=== PATIENT | male | born 1985 | race Hispanic/Latino ===

== ENCOUNTER 2020-11-29 09:31 | Inpatient (IN) | payer MEDICARE, OTHER ==
[~2020-11-29] VITALS: Ht 172.7 cm; Wt 118.2 kg
[2020-11-29] MEDS ORDERED: SODIUM CHLORIDE 0.9% 1000ML 1,000 ML IV STA (10:10)
[2020-11-29] MEDS ORDERED: CEFEPIME 2 GM in SODIUM CHLORIDE 0.9% 100 ML IV ONE (10:15)
[2020-11-29 10:25] LABS: BASOPHILS % 0.3 % (0.0-1.0); EOSINOPHILS % 0.1 % (0.0-6.0); HEMATOCRIT 40.4 % (38.2-49.6); HEMOGLOBIN 13.3 g/dL (14.0-18.0); LYMPHOCYTES # (AUTO) 2.1 (1.0-3.2); LYMPHOCYTES % 28.3 % (18.0-39.1); MEAN CORPUSCULAR HEMOGLOBIN 27.8 pg (28-32); MEAN CORPUSCULAR HGB CONC 32.9 g/dL (31-35); MEAN CORPUSCULAR VOLUME 84.3 fL (81-99); MONOCYTES # (AUTO) 0.8 (0.2-0.8); MONOCYTES % 11.2 % (4.4-11.3); NEUTROPHILS # (AUTO) 4.4 (2.1-6.9); NEUTROPHILS % 59.7 % (38.7-80.0); PLATELET COUNT 245 x10e3/uL (140-360); RED BLOOD COUNT 4.79 x10e6/uL (4.3-5.7); RED CELL DISTRIBUTION WIDTH 12.8 % (11.7-14.4)
[2020-11-29 10:44] LABS: ALBUMIN 3.7 g/dL (3.5-5.0); ALBUMIN/GLOBULIN RATIO 1.2 (0.8-2.0); ANION GAP 17.4 mmol/L (8-16); CALCIUM 8.3 mg/dL (8.4-10.2); CREATININE, SERUM 4.39 mg/dL (0.72-1.25); MAGNESIUM 1.8 MG/DL (1.3-2.1); POTASSIUM 4.4 mmol/L (3.5-5.1)
[2020-11-29 10:51] LABS: CREATINE KINASE MB 0.4 ng/mL (0-5.0)
[2020-11-29 11:04] LABS: B-TYPE NATRIURETIC PEPTIDE2 < 10.0 pg/mL (0-100)
[2020-11-29] MEDS ORDERED: DEXAMETHASONE SOD PHOS 10 MG/1 ML VIAL IV SCH (12:45)
[2020-11-29 13:57] LABS: CLARITY,URINE CLEAR (CLEAR); COLOR,URINE YELLOW (YELLOW); KETONES,URINE NEGATIVE (NEGATIVE); LEUKOCYTE ESTERASE ,URINE NEGATIVE (NEGATIVE); NITRITE,URINE NEGATIVE (NEGATIVE); PROTEIN,URINE DIPSTICK 2+ (NEGATIVE); URINE UROBILINOGEN 0.2 mg/dL (0.2 - 1)
[2020-11-29 14:25] LABS: BACTERIA,URINE RARE /HPF; EPITHELIAL CELLS,URINE FEW /LPF; RBC,URINE 0-5 /HPF (0-5); WBC,URINE (MAN) 0-5 /HPF (0-5)
[2020-11-29] MEDS ORDERED: DEXTROSE 50% SYRINGE 50 ML IV PRN (14:45)
[2020-11-29] MEDS ORDERED: LIDOCAINE 4% PATCH TP PRN (14:45)
[2020-11-29] MEDS ORDERED: ONDANSETRON HCL INJ 2MG/ML 2ML 2 MG/ML VIAL IV PRN (14:45)
[2020-11-29] MEDS ORDERED: BENZONATATE 100 MG CAP PO PRN (14:45)
[2020-11-29] MEDS ORDERED: HYDRALAZINE HCL 20 MG/ML VIAL IV PRN (14:45)
[2020-11-29] MEDS ORDERED: POTASSIUM CHLORIDE 20 MEQ TAB CR PO PRN (14:45)
[2020-11-29] MEDS ORDERED: DIPHENHYDRAMINE HCL 25 MG CAP PO PRN (14:45)
[2020-11-29] MEDS ORDERED: DOCUSATE SODIUM 100 MG CAP PO PRN (14:45)
[2020-11-29 19:00] VITALS: BP 135/83
[2020-11-29 20:00] VITALS: BP 135/83
[2020-11-29] MEDS ORDERED: AMLODIPINE BESYL5 MG PO (20:19)
[2020-11-29] MEDS: SODIUM CHLORIDE 0.9% 1000ML 1,000 ML IV SCH (20:19)
[2020-11-29] MEDS ORDERED: [UNRECOGNIZED DRUG - OTHER] PO (20:19)
[2020-11-29] MEDS ORDERED: ACTHAR H.P80 UNIT/1 SQ (20:19)
[2020-11-29] MEDS: ASCORBIC ACID 500 MG TAB PO SCH (20:19)
[2020-11-29] MEDS ORDERED: LOSARTAN POTAS100 MG PO (20:19)
[2020-11-29] MEDS ORDERED: CARVEDILOL6.25 MG PO (20:19)
[2020-11-29 21:01] VITALS: BP 135/83
[2020-11-29] MEDS ORDERED: BENLYSTA120 MG IV (22:32)
[2020-11-29] MEDS ORDERED: FUROSEMIDE80 MG PO (22:35)
[2020-11-30] VITALS (7 sets, daily range): BP systolic 122–141; BP diastolic 68–87
[2020-11-30] MEDS: SODIUM CHLORIDE 0.9% 1000ML 1,000 ML IV SCH ×2 (05:15→14:00)
[2020-11-30 05:43] LABS: HEMATOCRIT 38.1 % (38.2-49.6); HEMOGLOBIN 12.5 g/dL (14.0-18.0); LYMPHOCYTES # (AUTO) 1.2 (1.0-3.2); LYMPHOCYTES % 27.1 % (18.0-39.1); MEAN CORPUSCULAR HEMOGLOBIN 27.8 pg (28-32); MEAN CORPUSCULAR HGB CONC 32.8 g/dL (31-35); MEAN CORPUSCULAR VOLUME 84.9 fL (81-99); MONOCYTES # (AUTO) 0.2 (0.2-0.8); NEUTROPHILS # (AUTO) 2.9 (2.1-6.9); NEUTROPHILS % 67.4 % (38.7-80.0); PLATELET COUNT 240 x10e3/uL (140-360); RED BLOOD COUNT 4.49 x10e6/uL (4.3-5.7); RED CELL DISTRIBUTION WIDTH 12.7 % (11.7-14.4)
[2020-11-30 06:17] LABS: ALBUMIN 3.4 g/dL (3.5-5.0); ALBUMIN/GLOBULIN RATIO 1.1 (0.8-2.0); ANION GAP 17.9 mmol/L (8-16); CREATININE, SERUM 3.63 mg/dL (0.72-1.25); POTASSIUM 4.9 mmol/L (3.5-5.1)
[2020-11-30 06:56] LABS: CREATINE KINASE 129 IU/L (30-200)
[2020-11-30 07:10] LABS: PHOSPHORUS 2.4 MG/DL (2.3-4.7)
[2020-11-30 07:30] LABS: THYROID STIMULATING HORMONE 0.279 uIU/mL (0.350-4.940)
[2020-11-30] MEDS: ASCORBIC ACID 500 MG TAB PO SCH ×2 (08:52→17:05)
[2020-11-30] MEDS: ZINC SULFATE 220 MG CAP PO SCH (08:52)
[2020-11-30] MEDS: PANTOPRAZOLE SOD 40 MG TABEC PO SCH (08:52)
[2020-11-30] MEDS ORDERED: SODIUM CHLORIDE 0.9% 50ML 50 ML ONE (15:11)
[2020-11-30] MEDS: CEFTRIAXONE 1 GM in SODIUM CHLORIDE 0.9% 50ML 50 ML IV SCH (15:20)
[2020-11-30 16:23] LABS: CREATINE KINASE MB 0.9 ng/mL (0-5.0)
[2020-11-30] MEDS ORDERED: PLAQUENIL200 MG PO (17:01)
[2020-11-30] MEDS: CARVEDILOL 12.5 MG TAB PO SCH (17:04)
[2020-11-30] MEDS: HYDROXYCHLOROQUINE SULFATE 200 MG TAB PO SCH (18:59)
[2020-11-30] MEDS: HEPARIN SOD (PORCINE) 5,000 UNIT/ML VIAL SC SCH (22:54)
[2020-12-01] VITALS (7 sets, daily range): BP systolic 125–151; BP diastolic 66–92
[2020-12-01] MEDS: SODIUM CHLORIDE 0.9% 1000ML 1,000 ML IV SCH ×2 (05:23→12:42)
[2020-12-01] MEDS: ACETAMINOPHEN 325 MG TAB PO PRN ×3 (05:57→20:23)
[2020-12-01] MEDS: PANTOPRAZOLE SOD 40 MG TABEC PO SCH (08:41)
[2020-12-01] MEDS: CARVEDILOL 12.5 MG TAB PO SCH ×2 (08:42→16:24)
[2020-12-01] MEDS: [UNRECOGNIZED DRUG - OTHER] PO SCH ×2 (08:42→17:00)
[2020-12-01] MEDS: HYDROXYCHLOROQUINE SULFATE 200 MG TAB PO SCH (08:42)
[2020-12-01] MEDS: ZINC SULFATE 220 MG CAP PO SCH (08:42)
[2020-12-01] MEDS: ASCORBIC ACID 500 MG TAB PO SCH ×2 (08:42→16:25)
[2020-12-01] MEDS: AMLODIPINE BESYLATE 5 MG TAB PO SCH (08:42)
[2020-12-01] MEDS: HEPARIN SOD (PORCINE) 5,000 UNIT/ML VIAL SC SCH ×2 (08:43→21:35)
[2020-12-01] MEDS: [UNRECOGNIZED DRUG - OTHER] SC SCH (10:00)
[2020-12-01] MEDS: CEFTRIAXONE 1 GM in SODIUM CHLORIDE 0.9% 50ML 50 ML IV SCH (14:54)
[2020-12-01 16:09] LABS: ANION GAP 13.5 mmol/L (8-16); CALCIUM 7.5 mg/dL (8.4-10.2); CREATININE, SERUM 3.28 mg/dL (0.72-1.25); POTASSIUM 4.5 mmol/L (3.5-5.1)
[2020-12-01] MEDS: LACTATED RINGER'S 1,000 ML INJ SCH (18:56)
[2020-12-02] VITALS (8 sets, daily range): BP systolic 106–149; BP diastolic 65–91
[2020-12-02] MEDS: LACTATED RINGER'S 1,000 ML INJ SCH ×2 (04:54→16:40)
[2020-12-02] MEDS: AMLODIPINE BESYLATE 5 MG TAB PO SCH (08:26)
[2020-12-02] MEDS: ZINC SULFATE 220 MG CAP PO SCH (08:26)
[2020-12-02] MEDS: HYDROXYCHLOROQUINE SULFATE 200 MG TAB PO SCH (08:26)
[2020-12-02] MEDS: ASCORBIC ACID 500 MG TAB PO SCH ×2 (08:26→17:00)
[2020-12-02] MEDS: PANTOPRAZOLE SOD 40 MG TABEC PO SCH (08:26)
[2020-12-02] MEDS: CARVEDILOL 12.5 MG TAB PO SCH ×2 (08:26→17:00)
[2020-12-02] MEDS: ACETAMINOPHEN 325 MG TAB PO PRN ×2 (08:27→22:34)
[2020-12-02 08:57] LABS: ANION GAP 14.7 mmol/L (8-16); CREATININE, SERUM 3.33 mg/dL (0.72-1.25); POTASSIUM 4.7 mmol/L (3.5-5.1)
[2020-12-02] MEDS: HEPARIN SOD (PORCINE) 5,000 UNIT/ML VIAL SC SCH ×2 (09:00→21:15)
[2020-12-02] MEDS: [UNRECOGNIZED DRUG - OTHER] PO SCH ×2 (09:00→17:00)
[2020-12-02] MEDS: CEFTRIAXONE 1 GM in SODIUM CHLORIDE 0.9% 50ML 50 ML IV SCH (15:50)
[2020-12-02] MEDS ORDERED: REMDESIVIR 200MG/NS 100ML 200 MG in SODIUM CHLORIDE 0.9% 100 ML 100 ML IV ONE (16:00)
[2020-12-02] MEDS: DEXAMETHASONE SOD PHOS INJ 4 MG/ML VIAL IV SCH (16:40)
[2020-12-03] VITALS (8 sets, daily range): BP systolic 120–135; BP diastolic 69–89
[2020-12-03 04:47] LABS: BASOPHILS % 0.1 % (0.0-1.0); HEMATOCRIT 37.8 % (38.2-49.6); HEMOGLOBIN 12.5 g/dL (14.0-18.0); LYMPHOCYTES % 14.5 % (18.0-39.1); MEAN CORPUSCULAR HEMOGLOBIN 27.5 pg (28-32); MEAN CORPUSCULAR HGB CONC 33.1 g/dL (31-35); MEAN CORPUSCULAR VOLUME 83.1 fL (81-99); MONOCYTES # (AUTO) 0.3 (0.2-0.8); MONOCYTES % 3.9 % (4.4-11.3); NEUTROPHILS # (AUTO) 5.4 (2.1-6.9); NEUTROPHILS % 81.2 % (38.7-80.0); PLATELET COUNT 211 x10e3/uL (140-360); RED BLOOD COUNT 4.55 x10e6/uL (4.3-5.7); RED CELL DISTRIBUTION WIDTH 12.8 % (11.7-14.4)
[2020-12-03 05:16] LABS: ANION GAP 17.5 mmol/L (8-16); CALCIUM 7.6 mg/dL (8.4-10.2); CREATININE, SERUM 3.47 mg/dL (0.72-1.25); POTASSIUM 4.5 mmol/L (3.5-5.1)
[2020-12-03] MEDS: PANTOPRAZOLE SOD 40 MG TABEC PO SCH (07:30)
[2020-12-03] MEDS: AMLODIPINE BESYLATE 5 MG TAB PO SCH (09:00)
[2020-12-03] MEDS: HYDROXYCHLOROQUINE SULFATE 200 MG TAB PO SCH (09:00)
[2020-12-03] MEDS: [UNRECOGNIZED DRUG - OTHER] PO SCH ×2 (09:00→16:55)
[2020-12-03] MEDS: DEXAMETHASONE SOD PHOS INJ 4 MG/ML VIAL IV SCH (09:00)
[2020-12-03] MEDS: HEPARIN SOD (PORCINE) 5,000 UNIT/ML VIAL SC SCH ×2 (09:00→21:00)
[2020-12-03] MEDS: ZINC SULFATE 220 MG CAP PO SCH (09:00)
[2020-12-03] MEDS: CARVEDILOL 12.5 MG TAB PO SCH ×2 (09:00→16:55)
[2020-12-03] MEDS: ASCORBIC ACID 500 MG TAB PO SCH ×2 (09:00→16:55)
[2020-12-03 10:02] LABS: BAND NEUTROPHILS % (MANUAL) 4 %; LYMPHOCYTES % (MANUAL) 9 % (19-48); MONOCYTES % (MANUAL) 1 % (3.4-9.0); NEUTROPHILS % (MANUAL) 84 % (40-74)
[2020-12-03 10:03] LABS: PLATELET ESTIMATE ADEQUATE; PLATELET MORPHOLOGY COMMENT NORMAL; RBC MORPHOLOGY COMMENT NORMAL
[2020-12-03] MEDS: LACTATED RINGER'S 1,000 ML INJ SCH (11:30)
[2020-12-03] MEDS ORDERED: CHOLESTYRAMINE 4 GM PACKET PO PRN (12:15)
[2020-12-03] MEDS: REMDESIVIR 100MG/NS 100ML 100 MG in SODIUM CHLORIDE 0.9% 100 ML 100 ML IV SCH (14:00)
[2020-12-03] MEDS ORDERED: FUROSEMIDE INJ 10 MG/ML 2 ML VIAL IV ONE (15:30)
[2020-12-03] MEDS: CEFTRIAXONE 1 GM in SODIUM CHLORIDE 0.9% 50ML 50 ML IV SCH (15:38)
[2020-12-03] MEDS ORDERED: ALBUTEROL SULFATE HFA 8GM INHALATION AEROSOL INH PRN (23:30)
[2020-12-04] VITALS (8 sets, daily range): BP systolic 114–122; BP diastolic 71–81
[2020-12-04] MEDS: ACETAMINOPHEN 325 MG TAB PO PRN (04:30)
[2020-12-04 05:03] LABS: BASOPHILS % 0.1 % (0.0-1.0); HEMATOCRIT 38.7 % (38.2-49.6); HEMOGLOBIN 12.7 g/dL (14.0-18.0); LYMPHOCYTES # (AUTO) 0.9 (1.0-3.2); LYMPHOCYTES % 8.8 % (18.0-39.1); MEAN CORPUSCULAR HEMOGLOBIN 27.2 pg (28-32); MEAN CORPUSCULAR HGB CONC 32.8 g/dL (31-35); MEAN CORPUSCULAR VOLUME 82.9 fL (81-99); MONOCYTES # (AUTO) 0.8 (0.2-0.8); MONOCYTES % 7.7 % (4.4-11.3); NEUTROPHILS # (AUTO) 8.3 (2.1-6.9); NEUTROPHILS % 82.9 % (38.7-80.0); PLATELET COUNT 270 x10e3/uL (140-360); RED BLOOD COUNT 4.67 x10e6/uL (4.3-5.7); RED CELL DISTRIBUTION WIDTH 13.2 % (11.7-14.4)
[2020-12-04 05:23] LABS: ANION GAP 17.6 mmol/L (8-16); CALCIUM 8.1 mg/dL (8.4-10.2); CREATININE, SERUM 3.6 mg/dL (0.72-1.25); POTASSIUM 4.6 mmol/L (3.5-5.1)
[2020-12-04] MEDS: PANTOPRAZOLE SOD 40 MG TABEC PO SCH (07:30)
[2020-12-04] MEDS: ZINC SULFATE 220 MG CAP PO SCH (09:00)
[2020-12-04] MEDS: ASCORBIC ACID 500 MG TAB PO SCH ×2 (09:00→16:59)
[2020-12-04] MEDS: HYDROXYCHLOROQUINE SULFATE 200 MG TAB PO SCH (09:00)
[2020-12-04] MEDS: CARVEDILOL 12.5 MG TAB PO SCH ×2 (09:00→16:59)
[2020-12-04] MEDS: AMLODIPINE BESYLATE 5 MG TAB PO SCH (09:00)
[2020-12-04] MEDS: HEPARIN SOD (PORCINE) 5,000 UNIT/ML VIAL SC SCH ×2 (09:00→20:36)
[2020-12-04] MEDS: DEXAMETHASONE SOD PHOS INJ 4 MG/ML VIAL IV SCH (09:00)
[2020-12-04] MEDS: [UNRECOGNIZED DRUG - OTHER] PO SCH (09:00)
[2020-12-04] MEDS: [UNRECOGNIZED DRUG - OTHER] SC SCH (10:00)
[2020-12-04] MEDS ORDERED: FUROSEMIDE INJ 10 MG/ML 4 ML VIAL IV ONE ×2 (10:30→11:00)
[2020-12-04] MEDS: REMDESIVIR 100MG/NS 100ML 100 MG in SODIUM CHLORIDE 0.9% 100 ML 100 ML IV SCH (14:00)
[2020-12-04] MEDS: CEFTRIAXONE 1 GM in SODIUM CHLORIDE 0.9% 50ML 50 ML IV SCH (14:50)
[2020-12-05] VITALS (8 sets, daily range): BP systolic 106–124; BP diastolic 60–78
[2020-12-05] MEDS: LORAZEPAM 0.5 MG TAB PO PRN ×3 (01:03→23:59)
[2020-12-05 06:19] LABS: BASOPHILS % 0.1 % (0.0-1.0); HEMATOCRIT 39.1 % (38.2-49.6); HEMOGLOBIN 12.8 g/dL (14.0-18.0); LYMPHOCYTES # (AUTO) 0.9 (1.0-3.2); LYMPHOCYTES % 7.6 % (18.0-39.1); MEAN CORPUSCULAR HEMOGLOBIN 27.4 pg (28-32); MEAN CORPUSCULAR HGB CONC 32.7 g/dL (31-35); MEAN CORPUSCULAR VOLUME 83.7 fL (81-99); MONOCYTES # (AUTO) 0.9 (0.2-0.8); MONOCYTES % 8.2 % (4.4-11.3); NEUTROPHILS # (AUTO) 9.3 (2.1-6.9); NEUTROPHILS % 82.7 % (38.7-80.0); PLATELET COUNT 304 x10e3/uL (140-360); RED BLOOD COUNT 4.67 x10e6/uL (4.3-5.7); RED CELL DISTRIBUTION WIDTH 13.5 % (11.7-14.4)
[2020-12-05 06:45] LABS: ALBUMIN 2.9 g/dL (3.5-5.0); ALBUMIN/GLOBULIN RATIO 0.8 (0.8-2.0); ANION GAP 19.6 mmol/L (8-16); CALCIUM 7.7 mg/dL (8.4-10.2); CREATININE, SERUM 4.03 mg/dL (0.72-1.25); POTASSIUM 4.6 mmol/L (3.5-5.1)
[2020-12-05] MEDS: DEXAMETHASONE SOD PHOS INJ 4 MG/ML VIAL IV SCH (08:44)
[2020-12-05] MEDS: PANTOPRAZOLE SOD 40 MG TABEC PO SCH (08:44)
[2020-12-05] MEDS: ASCORBIC ACID 500 MG TAB PO SCH ×2 (08:45→17:00)
[2020-12-05] MEDS: AMLODIPINE BESYLATE 5 MG TAB PO SCH (08:45)
[2020-12-05] MEDS: CARVEDILOL 12.5 MG TAB PO SCH ×2 (08:45→17:00)
[2020-12-05] MEDS: ZINC SULFATE 220 MG CAP PO SCH (08:45)
[2020-12-05] MEDS: HEPARIN SOD (PORCINE) 5,000 UNIT/ML VIAL SC SCH ×2 (10:58→21:44)
[2020-12-05] MEDS: REMDESIVIR 100MG/NS 100ML 100 MG in SODIUM CHLORIDE 0.9% 100 ML 100 ML IV SCH (13:30)
[2020-12-05] MEDS ORDERED: SODIUM BICARBONATE 650 MG TAB PO SCH (14:00)
[2020-12-05] MEDS: CEFTRIAXONE 1 GM in SODIUM CHLORIDE 0.9% 50ML 50 ML IV SCH (15:00)
[2020-12-05] MEDS: SODIUM BICARBONATE 650 MG TAB PO SCH (17:00)
[2020-12-06] VITALS (8 sets, daily range): BP systolic 97–117; BP diastolic 55–70
[2020-12-06 07:11] LABS: BASOPHILS % 0.2 % (0.0-1.0); HEMATOCRIT 38.1 % (38.2-49.6); HEMOGLOBIN 12.3 g/dL (14.0-18.0); MEAN CORPUSCULAR HEMOGLOBIN 27.4 pg (28-32); MEAN CORPUSCULAR HGB CONC 32.3 g/dL (31-35); MEAN CORPUSCULAR VOLUME 84.9 fL (81-99); MONOCYTES # (AUTO) 1.3 (0.2-0.8); NEUTROPHILS # (AUTO) 9.7 (2.1-6.9); NEUTROPHILS % 77.5 % (38.7-80.0); PLATELET COUNT 304 x10e3/uL (140-360); RED BLOOD COUNT 4.49 x10e6/uL (4.3-5.7); RED CELL DISTRIBUTION WIDTH 13.6 % (11.7-14.4)
[2020-12-06 07:40] LABS: ANION GAP 19.7 mmol/L (8-16); CALCIUM 7.5 mg/dL (8.4-10.2); CREATININE, SERUM 4.49 mg/dL (0.72-1.25); POTASSIUM 4.7 mmol/L (3.5-5.1)
[2020-12-06] MEDS: AMLODIPINE BESYLATE 5 MG TAB PO SCH (09:00)
[2020-12-06] MEDS: PANTOPRAZOLE SOD 40 MG TABEC PO SCH (09:04)
[2020-12-06] MEDS: DEXAMETHASONE SOD PHOS INJ 4 MG/ML VIAL IV SCH (09:05)
[2020-12-06] MEDS: CARVEDILOL 12.5 MG TAB PO SCH ×2 (09:06→17:00)
[2020-12-06] MEDS: ZINC SULFATE 220 MG CAP PO SCH (09:07)
[2020-12-06] MEDS: ASCORBIC ACID 500 MG TAB PO SCH ×2 (09:07→17:05)
[2020-12-06] MEDS: SODIUM BICARBONATE 650 MG TAB PO SCH ×4 (09:07→20:03)
[2020-12-06] MEDS: HEPARIN SOD (PORCINE) 5,000 UNIT/ML VIAL SC SCH ×2 (09:34→20:04)
[2020-12-06] MEDS: REMDESIVIR 100MG/NS 100ML 100 MG in SODIUM CHLORIDE 0.9% 100 ML 100 ML IV SCH (14:30)
[2020-12-06] MEDS: LACTATED RINGER'S 1,000 ML INJ SCH (16:25)
[2020-12-06] MEDS: LORAZEPAM 0.5 MG TAB PO PRN (19:59)
[2020-12-07] VITALS (8 sets, daily range): BP systolic 109–114; BP diastolic 61–68
[2020-12-07 05:24] LABS: BASOPHILS % 0.2 % (0.0-1.0); HEMATOCRIT 36.1 % (38.2-49.6); HEMOGLOBIN 11.7 g/dL (14.0-18.0); LYMPHOCYTES % 7.6 % (18.0-39.1); MEAN CORPUSCULAR HEMOGLOBIN 26.9 pg (28-32); MEAN CORPUSCULAR HGB CONC 32.4 g/dL (31-35); MONOCYTES # (AUTO) 0.8 (0.2-0.8); MONOCYTES % 6.3 % (4.4-11.3); NEUTROPHILS # (AUTO) 10.3 (2.1-6.9); NEUTROPHILS % 80.8 % (38.7-80.0); PLATELET COUNT 295 x10e3/uL (140-360); RED BLOOD COUNT 4.35 x10e6/uL (4.3-5.7); RED CELL DISTRIBUTION WIDTH 13.3 % (11.7-14.4)
[2020-12-07 05:47] LABS: ANION GAP 19.5 mmol/L (8-16); CALCIUM 7.1 mg/dL (8.4-10.2); CREATININE, SERUM 4.23 mg/dL (0.72-1.25); POTASSIUM 4.5 mmol/L (3.5-5.1)
[2020-12-07] MEDS: PANTOPRAZOLE SOD 40 MG TABEC PO SCH (09:42)
[2020-12-07] MEDS: DEXAMETHASONE SOD PHOS INJ 4 MG/ML VIAL IV SCH (09:42)
[2020-12-07] MEDS: ZINC SULFATE 220 MG CAP PO SCH (09:43)
[2020-12-07] MEDS: HEPARIN SOD (PORCINE) 5,000 UNIT/ML VIAL SC SCH ×2 (09:43→20:30)
[2020-12-07] MEDS: ASCORBIC ACID 500 MG TAB PO SCH ×2 (09:43→17:16)
[2020-12-07] MEDS: AMLODIPINE BESYLATE 5 MG TAB PO SCH (09:43)
[2020-12-07] MEDS: CARVEDILOL 12.5 MG TAB PO SCH ×2 (09:43→17:16)
[2020-12-07] MEDS: BACITRACIN ZINC 15 GM OINT TOP SCH (09:43)
[2020-12-07] MEDS: SODIUM BICARBONATE 650 MG TAB PO SCH ×3 (09:43→20:30)
[2020-12-07] MEDS: LACTATED RINGER'S 1,000 ML INJ SCH (20:30)
[2020-12-08] VITALS (9 sets, daily range): BP systolic 110–135; BP diastolic 60–81
[2020-12-08 05:22] LABS: BASOPHILS % 0.3 % (0.0-1.0); HEMATOCRIT 36.3 % (38.2-49.6); LYMPHOCYTES # (AUTO) 0.7 (1.0-3.2); LYMPHOCYTES % 5.9 % (18.0-39.1); MEAN CORPUSCULAR HEMOGLOBIN 27.3 pg (28-32); MEAN CORPUSCULAR HGB CONC 33.1 g/dL (31-35); MEAN CORPUSCULAR VOLUME 82.5 fL (81-99); MONOCYTES # (AUTO) 0.6 (0.2-0.8); MONOCYTES % 5.1 % (4.4-11.3); NEUTROPHILS # (AUTO) 9.4 (2.1-6.9); NEUTROPHILS % 81.4 % (38.7-80.0); PLATELET COUNT 317 x10e3/uL (140-360); RED CELL DISTRIBUTION WIDTH 13.1 % (11.7-14.4)
[2020-12-08 06:27] LABS: ANION GAP 15.7 mmol/L (8-16); CALCIUM 7.6 mg/dL (8.4-10.2); CREATININE, SERUM 3.66 mg/dL (0.72-1.25); POTASSIUM 4.7 mmol/L (3.5-5.1)
[2020-12-08] MEDS: LACTATED RINGER'S 1,000 ML INJ SCH (06:30)
[2020-12-08] MEDS: PANTOPRAZOLE SOD 40 MG TABEC PO SCH (07:30)
[2020-12-08] MEDS: ASCORBIC ACID 500 MG TAB PO SCH ×2 (09:00→17:24)
[2020-12-08] MEDS: SODIUM BICARBONATE 650 MG TAB PO SCH ×3 (09:00→21:00)
[2020-12-08] MEDS: CARVEDILOL 12.5 MG TAB PO SCH ×2 (09:00→16:13)
[2020-12-08] MEDS: BACITRACIN ZINC 15 GM OINT TOP SCH (09:00)
[2020-12-08] MEDS: ZINC SULFATE 220 MG CAP PO SCH (09:00)
[2020-12-08] MEDS: AMLODIPINE BESYLATE 5 MG TAB PO SCH (09:00)
[2020-12-08] MEDS: DEXAMETHASONE SOD PHOS INJ 4 MG/ML VIAL IV SCH (09:00)
[2020-12-08] MEDS: [UNRECOGNIZED DRUG - OTHER] SC SCH (10:00)
[2020-12-09] VITALS (8 sets, daily range): BP systolic 110–125; BP diastolic 66–83
[2020-12-09 04:57] LABS: BASOPHILS % 0.3 % (0.0-1.0); HEMATOCRIT 35.8 % (38.2-49.6); HEMOGLOBIN 11.7 g/dL (14.0-18.0); LYMPHOCYTES # (AUTO) 0.6 (1.0-3.2); LYMPHOCYTES % 6.4 % (18.0-39.1); MEAN CORPUSCULAR HEMOGLOBIN 27.1 pg (28-32); MEAN CORPUSCULAR HGB CONC 32.7 g/dL (31-35); MEAN CORPUSCULAR VOLUME 83.1 fL (81-99); MONOCYTES # (AUTO) 0.4 (0.2-0.8); MONOCYTES % 4.3 % (4.4-11.3); NEUTROPHILS # (AUTO) 7.7 (2.1-6.9); NEUTROPHILS % 78.9 % (38.7-80.0); PLATELET COUNT 364 x10e3/uL (140-360); RED BLOOD COUNT 4.31 x10e6/uL (4.3-5.7); RED CELL DISTRIBUTION WIDTH 13.2 % (11.7-14.4)
[2020-12-09 05:30] LABS: CALCIUM 7.3 mg/dL (8.4-10.2); CREATININE, SERUM 3.21 mg/dL (0.72-1.25)
[2020-12-09] MEDS: CARVEDILOL 12.5 MG TAB PO SCH (08:19)
[2020-12-09] MEDS: ASCORBIC ACID 500 MG TAB PO SCH ×2 (08:50→16:08)
[2020-12-09] MEDS: DEXAMETHASONE SOD PHOS INJ 4 MG/ML VIAL IV SCH (08:50)
[2020-12-09] MEDS: PANTOPRAZOLE SOD 40 MG TABEC PO SCH (08:50)
[2020-12-09] MEDS: SODIUM BICARBONATE 650 MG TAB PO SCH ×3 (08:50→21:37)
[2020-12-09] MEDS: ZINC SULFATE 220 MG CAP PO SCH (08:50)
[2020-12-09] MEDS: AMLODIPINE BESYLATE 5 MG TAB PO SCH (08:50)
[2020-12-09] MEDS: BACITRACIN ZINC 15 GM OINT TOP SCH (08:50)
[2020-12-09] MEDS ORDERED: HEPARIN 25,000 UNIT 25,000 UNIT in DEXTROSE 5% 250ML 250 ML IV SCH (14:45)
[2020-12-09] MEDS ORDERED: HEPARIN 25,000 UNIT 1,500 UNIT in DEXTROSE 5% 250ML 250 ML IV SCH (15:00)
[2020-12-09] MEDS ORDERED: HEPARIN SOD (PORCINE) 5,000 UNIT/ML VIAL IV ONE ×2 (15:00)
[2020-12-09 17:08] LABS: PROTHROMBIN TIME 15.5 seconds (11.9-14.5)
[2020-12-09 17:22] LABS: PARTIAL THROMBOPLASTIN TIME > 200.0 seconds (23.8-35.5)
[2020-12-10] VITALS (9 sets, daily range): BP systolic 118–124; BP diastolic 70–79
[2020-12-10 04:59] LABS: BASOPHILS # (AUTO) 0.1 (0.0-0.1); BASOPHILS % 0.5 % (0.0-1.0); HEMOGLOBIN 11.7 g/dL (14.0-18.0); LYMPHOCYTES # (AUTO) 0.8 (1.0-3.2); LYMPHOCYTES % 7.6 % (18.0-39.1); MEAN CORPUSCULAR HEMOGLOBIN 27.7 pg (28-32); MEAN CORPUSCULAR HGB CONC 33.4 g/dL (31-35); MEAN CORPUSCULAR VOLUME 82.9 fL (81-99); MONOCYTES # (AUTO) 0.7 (0.2-0.8); MONOCYTES % 6.4 % (4.4-11.3); NEUTROPHILS % 74.6 % (38.7-80.0); PLATELET COUNT 367 x10e3/uL (140-360); RED BLOOD COUNT 4.22 x10e6/uL (4.3-5.7); RED CELL DISTRIBUTION WIDTH 13.1 % (11.7-14.4)
[2020-12-10 05:48] LABS: ANION GAP 17.1 mmol/L (8-16); CALCIUM 7.6 mg/dL (8.4-10.2); CREATININE, SERUM 2.86 mg/dL (0.72-1.25); POTASSIUM 5.1 mmol/L (3.5-5.1)
[2020-12-10] MEDS: AMLODIPINE BESYLATE 5 MG TAB PO SCH (08:25)
[2020-12-10] MEDS: ZINC SULFATE 220 MG CAP PO SCH (08:25)
[2020-12-10] MEDS: PANTOPRAZOLE SOD 40 MG TABEC PO SCH (08:25)
[2020-12-10] MEDS: SODIUM BICARBONATE 650 MG TAB PO SCH ×3 (08:25→21:15)
[2020-12-10] MEDS: ASCORBIC ACID 500 MG TAB PO SCH ×2 (08:25→16:05)
[2020-12-10] MEDS: BACITRACIN ZINC 15 GM OINT TOP SCH (08:25)
[2020-12-10] MEDS: DEXAMETHASONE SOD PHOS INJ 4 MG/ML VIAL IV SCH (08:25)
[2020-12-10] MEDS: APIXABAN 5 MG TABLET PO SCH ×2 (08:25→16:05)
[2020-12-10] MEDS: ACETAMINOPHEN 325 MG TAB PO PRN (19:15)
[2020-12-11] VITALS (8 sets, daily range): BP systolic 120–133; BP diastolic 71–84
[2020-12-11] MEDS: DEXAMETHASONE SOD PHOS INJ 4 MG/ML VIAL IV SCH (08:10)
[2020-12-11] MEDS: PANTOPRAZOLE SOD 40 MG TABEC PO SCH (08:10)
[2020-12-11] MEDS: AMLODIPINE BESYLATE 5 MG TAB PO SCH (08:11)
[2020-12-11] MEDS: BACITRACIN ZINC 15 GM OINT TOP SCH (08:11)
[2020-12-11] MEDS: SODIUM BICARBONATE 650 MG TAB PO SCH ×3 (08:11→21:21)
[2020-12-11] MEDS: [UNRECOGNIZED DRUG - OTHER] SC SCH (08:11)
[2020-12-11] MEDS: ZINC SULFATE 220 MG CAP PO SCH (08:11)
[2020-12-11] MEDS: APIXABAN 5 MG TABLET PO SCH ×2 (08:11→16:15)
[2020-12-11] MEDS: ASCORBIC ACID 500 MG TAB PO SCH ×2 (08:11→16:15)
[2020-12-12] VITALS (7 sets, daily range): BP systolic 113–146; BP diastolic 64–93
[2020-12-12 06:16] LABS: BASOPHILS % 0.3 % (0.0-1.0); EOSINOPHILS % 0.1 % (0.0-6.0); HEMATOCRIT 35.5 % (38.2-49.6); HEMOGLOBIN 11.5 g/dL (14.0-18.0); LYMPHOCYTES # (AUTO) 0.9 (1.0-3.2); LYMPHOCYTES % 7.3 % (18.0-39.1); MEAN CORPUSCULAR HEMOGLOBIN 27.3 pg (28-32); MEAN CORPUSCULAR HGB CONC 32.4 g/dL (31-35); MEAN CORPUSCULAR VOLUME 84.3 fL (81-99); MONOCYTES # (AUTO) 0.9 (0.2-0.8); MONOCYTES % 6.7 % (4.4-11.3); NEUTROPHILS # (AUTO) 10.1 (2.1-6.9); NEUTROPHILS % 78.7 % (38.7-80.0); PLATELET COUNT 415 x10e3/uL (140-360); RED BLOOD COUNT 4.21 x10e6/uL (4.3-5.7); RED CELL DISTRIBUTION WIDTH 13.4 % (11.7-14.4)
[2020-12-12 06:36] LABS: ALBUMIN 2.7 g/dL (3.5-5.0); ALBUMIN/GLOBULIN RATIO 0.9 (0.8-2.0); ANION GAP 13.8 mmol/L (8-16); CALCIUM 7.3 mg/dL (8.4-10.2); CREATININE, SERUM 2.75 mg/dL (0.72-1.25); POTASSIUM 4.8 mmol/L (3.5-5.1)
[2020-12-12] MEDS: PANTOPRAZOLE SOD 40 MG TABEC PO SCH (08:30)
[2020-12-12] MEDS: APIXABAN 5 MG TABLET PO SCH ×2 (08:44→16:48)
[2020-12-12] MEDS: SODIUM BICARBONATE 650 MG TAB PO SCH ×3 (08:44→20:35)
[2020-12-12] MEDS: AMLODIPINE BESYLATE 5 MG TAB PO SCH (08:44)
[2020-12-12] MEDS: BACITRACIN ZINC 15 GM OINT TOP SCH (08:44)
[2020-12-12] MEDS: ASCORBIC ACID 500 MG TAB PO SCH ×2 (08:44→16:48)
[2020-12-12] MEDS: ZINC SULFATE 220 MG CAP PO SCH (08:45)
[2020-12-13] VITALS (8 sets, daily range): BP systolic 104–134; BP diastolic 18–86
[2020-12-13 06:28] LABS: ANION GAP 11.4 mmol/L (8-16); CALCIUM 7.7 mg/dL (8.4-10.2); CREATININE, SERUM 2.76 mg/dL (0.72-1.25); POTASSIUM 4.4 mmol/L (3.5-5.1)
[2020-12-13] MEDS: PANTOPRAZOLE SOD 40 MG TABEC PO SCH (08:30)
[2020-12-13] MEDS: APIXABAN 5 MG TABLET PO SCH ×2 (08:43→16:22)
[2020-12-13] MEDS: ZINC SULFATE 220 MG CAP PO SCH (08:44)
[2020-12-13] MEDS: AMLODIPINE BESYLATE 5 MG TAB PO SCH (08:44)
[2020-12-13] MEDS: SODIUM BICARBONATE 650 MG TAB PO SCH ×3 (08:44→21:26)
[2020-12-13] MEDS: BACITRACIN ZINC 15 GM OINT TOP SCH (08:44)
[2020-12-13] MEDS: ASCORBIC ACID 500 MG TAB PO SCH ×2 (08:44→16:22)
[2020-12-14 00:54] VITALS: BP 121/76
[2020-12-14 05:08] VITALS: BP 125/84
[2020-12-14 06:11] LABS: ANION GAP 12.7 mmol/L (8-16); CALCIUM 7.5 mg/dL (8.4-10.2); CREATININE, SERUM 2.55 mg/dL (0.72-1.25); POTASSIUM 4.7 mmol/L (3.5-5.1)
[2020-12-14 07:45] VITALS: BP 125/84
[2020-12-14 08:57] VITALS: BP 128/86
[2020-12-14] MEDS: ZINC SULFATE 220 MG CAP PO SCH (09:35)
[2020-12-14] MEDS: ASCORBIC ACID 500 MG TAB PO SCH (09:35)
[2020-12-14] MEDS: AMLODIPINE BESYLATE 5 MG TAB PO SCH (09:35)
[2020-12-14] MEDS: APIXABAN 5 MG TABLET PO SCH (09:35)
[2020-12-14] MEDS: PANTOPRAZOLE SOD 40 MG TABEC PO SCH (09:35)
[2020-12-14] MEDS: SODIUM BICARBONATE 650 MG TAB PO SCH (09:35)
[2020-12-14 12:19] VITALS: BP 138/88
[2020-12-14] MEDS ORDERED: ONDANSETRON HCL 4 MG ORAL DISINTEGRATING TAB PO PRN (12:45)
[2020-12-14 15:07] VITALS: BP 134/66
== END 2020-12-14 16:49 | DRG 871 ==
LOC: ER 09:45 → ERHOLD 13:49 → MED/SURG2 18:51 → IMCU 12-08 15:40 → MED/SURG3 12-11 14:15
PROVIDERS: ADMIT Internal Medicine; ATTEND Internal Medicine
PROC: 8E0ZXY6 Isolation (ICD-10-PCS; principal; 2020-11-29)
PROC: XW033E5 Introduction of Remdesivir Anti-infective into Peripheral Vein, Percutaneous Approach, New Technology Group 5 (ICD-10-PCS; 2020-12-03)
DX: A41.9 Sepsis, unspecified organism (principal); U07.1 COVID-19; J12.82 Pneumonia due to coronavirus disease 2019; J96.01 Acute respiratory failure with hypoxia; N18.4 Chronic kidney disease, stage 4 (severe); E66.2 Morbid (severe) obesity with alveolar hypoventilation; D84.9 Immunodeficiency, unspecified; E87.2 Acidosis; I82.431 Acute embolism and thrombosis of right popliteal vein; M32.14 Glomerular disease in systemic lupus erythematosus; E78.5 Hyperlipidemia, unspecified; Z68.39 Body mass index [BMI] 39.0-39.9, adult
CPT/HCPCS: 36415; 70450; 71045; 78580; 80048; 80053; 81001; 82550; 82553; 82728; 82948; 83605; 83735; 83880; 84100; 84443; 84484; 85025; 85384; 85597; 85610; 85613; 85730; 86140; 87040; 87086; 93306; 93970; 96361; 99285; A9540; J0456; J0692; J0696; J1100; J1644; J1940; J2405; J7030; J7050; J7121; U0002

== ENCOUNTER 2021-02-22 15:14 | Emergency (ER) | payer MEDICARE ==
[~2021-02-22] VITALS: Ht 172.7 cm; Wt 117.9 kg
[~2021-02-22 15:14] MED LIST: ACTHAR H.P80 UNIT/1 SQ; AMLODIPINE BESYL5 MG PO; BENLYSTA120 MG IV; CARVEDILOL6.25 MG PO; FUROSEMIDE80 MG PO; LOSARTAN POTAS100 MG PO; PLAQUENIL200 MG PO; [UNRECOGNIZED DRUG - OTHER] PO
[2021-02-22] MEDS ORDERED: SODIUM CHLORIDE 0.9% 1000ML 1,000 ML IV STA (15:31)
[2021-02-22] MEDS ORDERED: Morphine 2mg Syringe 2 MG/ML SYR IV STA (15:31)
[2021-02-22] MEDS ORDERED: ONDANSETRON HCL INJ 2MG/ML 2ML 2 MG/ML VIAL IV STA (15:31)
[2021-02-22 15:41] LABS: BASOPHILS % 0.2 % (0.0-1.0); EOSINOPHILS # (AUTO) 0.2 (0.0-0.4); HEMATOCRIT 41.3 % (38.2-49.6); HEMOGLOBIN 13.7 g/dL (14.0-18.0); LYMPHOCYTES # (AUTO) 2.4 (1.0-3.2); LYMPHOCYTES % 21.8 % (18.0-39.1); MEAN CORPUSCULAR HEMOGLOBIN 28.2 pg (28-32); MEAN CORPUSCULAR HGB CONC 33.2 g/dL (31-35); MEAN CORPUSCULAR VOLUME 85.2 fL (81-99); MONOCYTES # (AUTO) 0.9 (0.2-0.8); MONOCYTES % 8.4 % (4.4-11.3); NEUTROPHILS # (AUTO) 7.3 (2.1-6.9); NEUTROPHILS % 67.3 % (38.7-80.0); PLATELET COUNT 327 x10e3/uL (140-360); RED BLOOD COUNT 4.85 x10e6/uL (4.3-5.7); RED CELL DISTRIBUTION WIDTH 14.1 % (11.7-14.4)
[2021-02-22 16:04] LABS: ALBUMIN 4.1 g/dL (3.5-5.0); ALBUMIN/GLOBULIN RATIO 1.3 (0.8-2.0); ANION GAP 17.6 mmol/L (8-16); CREATININE, SERUM 2.94 mg/dL (0.72-1.25); POTASSIUM 4.6 mmol/L (3.5-5.1)
[2021-02-22 17:55] VITALS: BP 143/59
[2021-02-22] MEDS ORDERED: DONNATAL/LIDOCAINE/MAALOX 30 ML SUSP PO SCH (21:00)
== END 2021-02-22 17:57 | disposition home or self-care (01) ==
LOC: ER 15:20
DX: R10.13 Epigastric pain (principal); R11.2 Nausea with vomiting, unspecified; R19.7 Diarrhea, unspecified; N18.9 Chronic kidney disease, unspecified; I10 Essential (primary) hypertension; M32.9 Systemic lupus erythematosus, unspecified
CPT/HCPCS: 36415; 80053; 83690; 85025; 99284; C9113; J2270; J2405; J7030

== ENCOUNTER 2023-08-31 09:41 | Emergency (ER) | payer MEDICARE ==
[~2023-08-31] VITALS: Ht 175.3 cm; Wt 113.4 kg
[2023-08-31] MEDS: ACETAMINOPHEN 325 MG TAB PO ONE (11:09)
[2023-08-31] MEDS: DEXAMETHASONE SOD PHOS 10 MG/1 ML VIAL IM ONE (11:09)
[2023-08-31 11:19] VITALS: BP 132/85; PULSE 67; RESP 18; TEMP 98.2; O2SAT 97
[2023-08-31] MEDS ORDERED: DEXAMETHASONE SOD PHOS 10 MG/1 ML VIAL ONE (14:53)
[2023-08-31] MEDS ORDERED: ACETAMINOPHEN 325 MG TAB ONE (14:53)
[2023-09-04] MEDS ORDERED: METHYLPREDNISOLO4 M1 PO (17:52)
== END 2023-08-31 11:23 | disposition home or self-care (01) ==
LOC: ER 09:47
DX: M79.662 Pain in left lower leg (principal); M54.32 Sciatica, left side; I10 Essential (primary) hypertension; M32.9 Systemic lupus erythematosus, unspecified
CPT/HCPCS: 99281; J1100